=== PATIENT | female | born 1945 | race Caucasian/White ===

== ENCOUNTER 2018-03-01 15:38 | Outpatient (REF) | payer MEDICARE, OTHER, SELFPAY ==
[2018-03-01 22:07] LABS: HCT 39.5 % (36.0-46.0); Mean Corp. HGB Concentration 32.9 g/dL (32.0-36.0); Mean Corpuscular Hemoglobin 30.9 pg (27.0-33.0); Mean Corpuscular Volume 93.8 fL (80-95); Mean Platelet Volume 10.7 fL (8.0-11.0); Platelet Count 266 x1000/uL (130-400); RBC 4.21 m/cumm (4.00-5.20); RBC Distribution Width 12.5 % (11.7-14.6); White Blood Cell Count 5.25 k/cumm (4.4-10.8)
[2018-03-01 22:18] LABS: Anion Gap 6.6 mmol/L (3-11); BUN 14 mg/dL (7-18); CO2 31.4 mmol/L (21.0-32.0); CREATININE 0.54 mg/dL (0.55-1.02); Calcium 8.6 mg/dL (8.5-10.1); Chloride 105 mmol/L (98-107); Glucose 90 mg/dL (70-100); NT-proBNP 102 pg/mL; Potassium 3.9 mmol/L (3.5-5.1); Sodium 143 mmol/L (136-145); TSH 1.19 uIU/mL (0.358-3.74)
== END 2018-03-01 15:58 ==
LOC: NCHCN 15:38
PROVIDERS: PCP Internal Medicine; Visit Provider Registered Nurse
DX: R06.00 Dyspnea, unspecified (principal); E03.9 Hypothyroidism, unspecified
CPT/HCPCS: 80048; 85027; 83880; 84443

== ENCOUNTER 2018-07-06 16:28 | Outpatient (REF) | payer MEDICARE, OTHER, SELFPAY ==
[2018-07-06 21:40] LABS: HCT 38.6 % (36.0-46.0); HGB 12.8 g/dL (12.0-15.5); Mean Corp. HGB Concentration 33.2 g/dL (32.0-36.0); Mean Corpuscular Hemoglobin 31.1 pg (27.0-33.0); Mean Corpuscular Volume 93.7 fL (80-95); Mean Platelet Volume 11.3 fL (8.0-11.0); Platelet Count 242 x1000/uL (130-400); RBC 4.12 m/cumm (4.00-5.20); RBC Distribution Width 12.5 % (11.7-14.6); White Blood Cell Count 6.29 k/cumm (4.4-10.8)
[2018-07-06 21:48] LABS: C-Reactive Protein 0.16 mg/dL (0.0-0.3)
[2018-07-06 23:11] LABS: ESR 12 MM/HR (0-30)
== END 2018-07-06 16:48 ==
LOC: NCHCN 16:28
PROVIDERS: PCP Internal Medicine; Visit Provider Registered Nurse
DX: M79.7 Fibromyalgia (principal); R52 Pain, unspecified
CPT/HCPCS: 85027; 85652; 86140

== ENCOUNTER 2018-08-30 15:08 | Outpatient (REF) | payer MEDICARE, OTHER, SELFPAY ==
[2018-08-30 21:33] LABS: HCT 39.8 % (36.0-46.0); HGB 12.9 g/dL (12.0-15.5); Mean Corp. HGB Concentration 32.4 g/dL (32.0-36.0); Mean Corpuscular Hemoglobin 31.3 pg (27.0-33.0); Mean Corpuscular Volume 96.6 fL (80-95); Mean Platelet Volume 11.1 fL (8.0-11.0); Platelet Count 240 x1000/uL (130-400); RBC 4.12 m/cumm (4.00-5.20); RBC Distribution Width 13.1 % (11.7-14.6); White Blood Cell Count 5.03 k/cumm (4.4-10.8)
[2018-08-30 21:44] LABS: ALT 32 U/L (12-78); AST 20 U/L (15-37); Albumin 3.7 g/dL (3.4-5.0); Alkaline Phosphatase 110 U/L (46-116); Anion Gap 6.3 mmol/L (3-11); BUN 11 mg/dL (7-18); Bilirubin, Total 0.5 mg/dL (0.2-1.0); CO2 30.7 mmol/L (21.0-32.0); CREATININE 0.56 mg/dL (0.55-1.02); Calcium 8.7 mg/dL (8.5-10.1); Chloride 105 mmol/L (98-107); Glucose 91 mg/dL (70-100); Magnesium 2.1 mg/dL (1.8-2.4); Potassium 3.7 mmol/L (3.5-5.1); Sodium 142 mmol/L (136-145); Total Protein 6.5 g/dL (6.4-8.2)
== END 2018-08-30 15:28 ==
LOC: NCHCN 15:08
PROVIDERS: PCP Internal Medicine; Visit Provider Registered Nurse
DX: R07.89 Other chest pain (principal)
CPT/HCPCS: 80053; 85027; 83735

== ENCOUNTER 2019-02-28 10:41 | Outpatient (REF) | payer MEDICARE, OTHER, SELFPAY ==
[2019-02-28 21:33] LABS: TSH 0.51 uIU/mL (0.36-3.74)
== END 2019-02-28 11:01 ==
LOC: NCHCN 10:41
PROVIDERS: PCP Internal Medicine; Visit Provider Registered Nurse
DX: E03.9 Hypothyroidism, unspecified (principal)
CPT/HCPCS: 84443

== ENCOUNTER 2019-10-20 21:55 | Outpatient (REF) | payer MEDICARE, OTHER, SELFPAY ==
[2019-10-20 21:43] LABS: HCT 35.6 % (36.0-46.0); HGB 11.5 g/dL (12.0-15.5); Mean Corp. HGB Concentration 32.3 g/dL (32.0-36.0); Mean Corpuscular Hemoglobin 29.9 pg (27.0-33.0); Mean Corpuscular Volume 92.5 fL (80-95); Platelet Count 291 x1000/uL (130-400); RBC 3.85 m/cumm (4.00-5.20); RBC Distribution Width 12.5 % (11.7-14.6); White Blood Cell Count 5.79 k/cumm (4.4-10.8)
[2019-10-20 22:13] LABS: ALT 20 U/L (14-59); AST 18 U/L (15-37); Albumin 3.6 g/dL (3.4-5.0); Alkaline Phosphatase 109 U/L (46-116); Anion Gap 9.2 mmol/L (3-11); BUN 19 mg/dL (7-18); Bilirubin, Total 0.4 mg/dL (0.2-1.0); CO2 29.8 mmol/L (21.0-32.0); CREATININE 0.81 mg/dL (0.55-1.02); Calcium 8.6 mg/dL (8.5-10.1); Chloride 104 mmol/L (98-107); Glucose 112 mg/dL (74-106); Magnesium 2.1 mg/dL (1.8-2.4); NT-proBNP 182 pg/mL (<300); Potassium 3.6 mmol/L (3.5-5.1); Sodium 143 mmol/L (136-145)
[2019-10-20 22:15] LABS: PROTEIN 18.5 mg/dL
[2019-10-20 22:16] LABS: COMMENT (LAB VIEW ONLY) 219.44 mg/dL; Prot/Crea Ur Ratio 0.08
== END 2019-10-20 22:15 ==
LOC: NCHCN 21:55
PROVIDERS: PCP Internal Medicine; Visit Provider Registered Nurse
DX: R60.0 Localized edema (principal)
CPT/HCPCS: 80053; 85027; 82565; 83735; 83880; 84156

== ENCOUNTER 2019-11-09 19:49 | Outpatient (REF) | payer MEDICARE, OTHER, SELFPAY ==
[2019-11-09 20:00] LABS: HCT 36.7 % (36.0-46.0); MCH 30.2 pg (27.0-33.0); MCHC 32.7 % (32.0-36.0); MCV 92.4 fL (80-95); Platelet Count 275 10^3/uL (130-400); RBC 3.97 10^6/uL (3.93-5.22); RDW 12.4 % (11.7-14.6); RDW-SD 41.6 fL; WBC 6.32 10^3/uL (4.4-10.8)
[2019-11-09 20:23] LABS: Hemoglobin A1C 5.6 % (3.8-5.6)
== END 2019-11-09 20:09 ==
LOC: NCHCN 19:49
PROVIDERS: PCP Internal Medicine; Visit Provider Registered Nurse
DX: D64.9 Anemia, unspecified (principal); R73.9 Hyperglycemia, unspecified
CPT/HCPCS: 85027; 83036

== ENCOUNTER 2020-09-27 16:53 | Outpatient (REF) | payer MEDICARE, OTHER, SELFPAY ==
[2020-09-27 21:02] LABS: Abs Immature Grans 0.02 10^3/uL (0.0-0.06); Absolute Basophil Count 0.08 10^3/uL (0.0-0.2); Absolute Eosinophil Count 0.21 10^3/uL (0.0-0.7); Absolute Lymphocyte Count 1.63 10^3/uL (1.2-3.4); Absolute Monocyte Count 0.59 10^3/uL (0.1-0.8); Absolute Neutrophil Count 3.83 10^3/uL (1.2-6.7); Basophils % 1.3; Eosinophils % 3.3; HGB 12.7 g/dL (11.2-15.7); Immature Grans % 0.3; Lymphocytes % 25.6; MCH 30.8 pg (27.0-33.0); MCHC 32.6 % (32.0-36.0); MCV 94.4 fL (80-95); MPV 11.1 fL (8.0-11.0); Monocytes % 9.3; Neutrophils % 60.2; Nucleated RBC 0 %; Platelet Count 259 10^3/uL (130-400); RBC 4.13 10^6/uL (3.93-5.22); RDW 12.6 % (11.7-14.6); RDW-SD 43.6 fL; WBC 6.36 10^3/uL (4.4-10.8)
[2020-09-27 21:23] LABS: ALT 18 U/L (14-59); AST 16 U/L (15-37); Albumin 3.7 g/dL (3.4-5.0); Alkaline Phosphatase 107 U/L (46-116); Anion Gap 8.7 mmol/L (3-11); BUN 16 mg/dL (7-18); Bilirubin, Total 0.4 mg/dL (0.2-1.0); CO2 30.3 mmol/L (21.0-32.0); CREATININE 0.6 mg/dL (0.55-1.02); Calcium 8.7 mg/dL (8.5-10.1); Calculated LDL 76 mg/dL (<100); Chloride 105 mmol/L (98-107); Cholesterol 155 mg/dL (<200); Glucose 91 mg/dL (74-106); HDL Cholesterol 63 mg/dL (40-60); Sodium 144 mmol/L (136-145); TSH 1.07 uIU/mL (0.36-3.74); Total Protein 6.4 g/dL (6.4-8.2); Triglyceride 81 mg/dL (<150)
[2020-09-27 21:26] LABS: Hemoglobin A1C 5.6 % (<5.7)
== END 2020-09-27 16:54 | disposition home or self-care (01) ==
LOC: NCHCN 16:53
PROVIDERS: PCP Internal Medicine; Visit Provider Registered Nurse
DX: Z00.00 Encounter for general adult medical examination without abnormal findings (principal); E03.9 Hypothyroidism, unspecified; E78.5 Hyperlipidemia, unspecified; M79.10 Myalgia, unspecified site
CPT/HCPCS: 80053; 80061; 83036; 84443; 85025

== ENCOUNTER 2021-01-16 08:45 | Outpatient (REF) | payer MEDICARE, OTHER, SELFPAY ==
[2021-01-18 10:51] LABS: COVID-19 RT-PCR UVMMC Result Negative (Negative)
== END 2021-01-16 08:46 | disposition home or self-care (01) ==
LOC: NCHCN 08:45
PROVIDERS: PCP Internal Medicine; Visit Provider Registered Nurse
DX: Z20.822 Contact with and (suspected) exposure to COVID-19 (principal); R19.7 Diarrhea, unspecified
CPT/HCPCS: U0003; U0005

== ENCOUNTER 2022-10-02 12:58 | Outpatient (REF) | payer MEDICARE, SELFPAY ==
[2022-10-02 16:55] LABS: ESR 8 mm/hr (0-30)
[2022-10-03 20:01] LABS: CRP, High Sensitivity 1.22 mg/L (See Note)
== END 2022-10-02 12:59 | disposition home or self-care (01) ==
LOC: NCHCN 12:58
PROVIDERS: PCP Internal Medicine; Visit Provider Nurse Practitioner Family
DX: M79.605 Pain in left leg (principal); M54.9 Dorsalgia, unspecified; M79.604 Pain in right leg
CPT/HCPCS: 80053; 85652; 86141

== ENCOUNTER 2022-12-15 21:41 | Outpatient (REF) | payer MEDICARE, SELFPAY ==
[2022-12-15 22:14] LABS: Hemoglobin A1C 5.5 % (<5.7)
[2022-12-15 22:21] LABS: ALT 23 U/L (14-59); AST 19 U/L (15-37); Albumin 3.7 g/dL (3.4-5.0); Alkaline Phosphatase 81 U/L (46-116); Anion Gap 5.6 mmol/L (3-11); BUN 14 mg/dL (7-18); Bilirubin, Total 0.5 mg/dL (0.2-1.0); CO2 31.4 mmol/L (21.0-32.0); CREATININE 0.7 mg/dL (0.55-1.02); Calcium 8.9 mg/dL (8.5-10.1); Calculated LDL 54 mg/dL (<100); Chloride 104 mmol/L (98-107); Cholesterol 139 mg/dL (<200); Estimated GFR 89.58 (mL/min/1.73m2); Glucose 98 mg/dL (74-106); HDL Cholesterol 73 mg/dL (40-60); Potassium 3.6 mmol/L (3.5-5.1); Sodium 141 mmol/L (136-145); TSH 0.74 uIU/mL (0.36-3.74); Total Protein 6.3 g/dL (6.4-8.2); Triglyceride 64 mg/dL (<150)
== END 2022-12-15 21:42 | disposition home or self-care (01) ==
LOC: NCHCN 21:41
PROVIDERS: PCP Internal Medicine; Visit Provider Nurse Practitioner Family
DX: E78.5 Hyperlipidemia, unspecified (principal); I10 Essential (primary) hypertension; E03.9 Hypothyroidism, unspecified; R73.09 Other abnormal glucose
CPT/HCPCS: 80053; 80061; 83036; 84443

== ENCOUNTER 2023-12-07 18:47 | Outpatient (REF) | payer MEDICARE, SELFPAY ==
[2023-12-07 21:59] LABS: TSH 1.53 uIU/Ml (0.36-3.74)
== END 2023-12-07 18:48 | disposition home or self-care (01) ==
LOC: NCHCN 18:47
PROVIDERS: PCP Internal Medicine; Visit Provider Nurse Practitioner Family
DX: E03.9 Hypothyroidism, unspecified (principal)
CPT/HCPCS: 84443

== ENCOUNTER 2024-03-14 20:26 | Outpatient (REF) | payer MEDICARE, SELFPAY ==
[2024-03-14 21:44] LABS: Abs Immature Grans 0.01 10^3/uL (0.0-0.06); Absolute Basophil Count 0.06 10^3/uL (0.0-0.2); Absolute Eosinophil Count 0.14 10^3/uL (0.0-0.7); Absolute Monocyte Count 0.59 10^3/uL (0.1-0.8); Absolute Neutrophil Count 4.23 10^3/uL (1.2-6.7); Basophils % 0.9 %; Eosinophils % 2.1 %; HCT 38.5 % (36.0-46.0); HGB 12.6 g/dL (11.2-15.7); Immature Grans % 0.2 %; MCH 30.2 pg (27.0-33.0); MCHC 32.7 % (32.0-36.0); MCV 92 fL (80-95); MPV 10.8 fL (8.0-11.0); Neutrophils % 64.8 %; Platelet Count 283 10^3/uL (130-400); RBC 4.17 10^6/uL (3.93-5.22); RDW 12.9 % (11.7-14.6); RDW-SD 43.7 fL; WBC 6.53 10^3/uL (4.4-10.8)
[2024-03-14 22:06] LABS: ALT 17 U/L (14-59); AST 20 U/L (15-37); Albumin 3.5 g/dL (3.4-5.0); Alkaline Phosphatase 131 U/L (46-116); Anion Gap 7.6 mmol/L (3-11); BUN 23 mg/dL (7-18); Bilirubin, Total 0.56 mg/dL (0.2-1.0); CO2 30.4 mmol/L (21.0-32.0); CREATININE 0.9 mg/dL (0.55-1.02); Calcium 9.2 mg/dL (8.5-10.1); Chloride 107 mmol/L (98-107); Estimated GFR 65.84 (mL/min/1.73m2); Glucose 105 mg/dL (74-106); Potassium 3.7 mmol/L (3.5-5.1); Sodium 145 mmol/L (136-145); Total Protein 6.5 g/dL (6.4-8.2)
[2024-03-14 22:37] LABS: Lipase 18 U/L (<78)
[2024-03-15 09:37] LABS: GGT 16 U/L
== END 2024-03-14 20:27 | disposition home or self-care (01) ==
LOC: NCHCN 20:26
PROVIDERS: PCP Internal Medicine; Visit Provider Nurse Practitioner Family
DX: R10.9 Unspecified abdominal pain (principal); R74.8 Abnormal levels of other serum enzymes
CPT/HCPCS: 80053; 83690; 82977; 85025

== ENCOUNTER 2024-03-18 20:15 | Outpatient (REF) | payer MEDICARE, SELFPAY ==
[2024-03-25 12:46] LABS: Helicobacter pylori Ag, Feces Positive (Negative)
== END 2024-03-18 20:16 | disposition home or self-care (01) ==
LOC: NCHCN 20:15
PROVIDERS: PCP Internal Medicine; Visit Provider Nurse Practitioner Family
DX: R10.9 Unspecified abdominal pain (principal)
CPT/HCPCS: 87338

== ENCOUNTER 2024-04-25 21:31 | Outpatient (REF) | payer MEDICARE, SELFPAY ==
[2024-04-25 22:15] LABS: Vitamin D 25 Total 36.3 ng/mL (30-100)
== END 2024-04-25 21:32 | disposition home or self-care (01) ==
LOC: NCHCN 21:31
PROVIDERS: PCP Internal Medicine; Visit Provider Internal Medicine
DX: M81.0 Age-related osteoporosis without current pathological fracture (principal)
CPT/HCPCS: 82306

== ENCOUNTER 2024-05-09 21:03 | Outpatient (REF) | payer MEDICARE, SELFPAY ==
[2024-05-13 13:48] LABS: Helicobacter pylori Ag, Feces Negative (Negative)
== END 2024-05-09 21:04 | disposition home or self-care (01) ==
LOC: NCHCN 21:03
PROVIDERS: PCP Internal Medicine; Visit Provider Internal Medicine
DX: K29.70 Gastritis, unspecified, without bleeding (principal)
CPT/HCPCS: 87338

== ENCOUNTER 2024-08-08 22:25 | Outpatient (REF) | payer MEDICARE, SELFPAY ==
[2024-08-08 22:40] LABS: Abs Immature Grans 0.02 10^3/uL (0.0-0.06); Absolute Basophil Count 0.06 10^3/uL (0.0-0.2); Absolute Eosinophil Count 0.13 10^3/uL (0.0-0.7); Absolute Lymphocyte Count 1.34 10^3/uL (1.2-3.4); Absolute Monocyte Count 0.44 10^3/uL (0.1-0.8); Absolute Neutrophil Count 4.06 10^3/uL (1.2-6.7); Eosinophils % 2.1 %; HCT 38.9 % (36.0-46.0); Immature Grans % 0.3 %; Lymphocytes % 22.1 %; MCH 31.3 pg (27.0-33.0); MCHC 33.4 % (32.0-36.0); MCV 94 fL (80-95); MPV 10.8 fL (8.0-11.0); Monocytes % 7.3 %; Neutrophils % 67.2 %; Platelet Count 303 10^3/uL (130-400); RBC 4.16 10^6/uL (3.93-5.22); RDW 13.4 % (11.7-14.6); RDW-SD 45.7 fL; WBC 6.05 10^3/uL (4.4-10.8)
[2024-08-08 22:41] LABS: ESR 4 mm/hr (0-30)
[2024-08-08 23:15] LABS: ALT 26 U/L (14-59); AST 21 U/L (15-37); Alkaline Phosphatase 98 U/L (46-116); Anion Gap 5.2 mmol/L (3-11); BUN 15 mg/dL (7-18); Bilirubin, Total 0.7 mg/dL (0.2-1.0); CO2 29.8 mmol/L (21.0-32.0); CREATININE 0.7 mg/dL (0.55-1.02); Calcium 8.7 mg/dL (8.5-10.1); Chloride 107 mmol/L (98-107); Estimated GFR 88.47 (mL/min/1.73m2); Ferritin 30 ng/mL (8-252); Glucose 102 mg/dL (74-106); Magnesium 2.1 mg/dL (1.8-2.4); Potassium 3.8 mmol/L (3.5-5.1); Sodium 142 mmol/L (136-145); TSH 5.73 uIU/mL (0.36-3.74); Total Protein 6.2 g/dL (6.4-8.2)
[2024-08-08 23:17] LABS: C-Reactive Protein < 0.50 mg/dL (<or=0.5)
== END 2024-08-08 22:26 | disposition home or self-care (01) ==
LOC: NCHCN 22:25
PROVIDERS: PCP Internal Medicine; Visit Provider Internal Medicine
DX: R53.83 Other fatigue (principal); G47.9 Sleep disorder, unspecified; M79.606 Pain in leg, unspecified; E03.9 Hypothyroidism, unspecified
CPT/HCPCS: 80053; 85652; 82728; 83735; 84443; 85025; 86140

== ENCOUNTER 2024-09-22 22:03 | Outpatient (REF) | payer MEDICARE, SELFPAY ==
[2024-09-22 22:25] LABS: TSH 3.84 uIU/mL (0.36-3.74)
== END 2024-09-22 22:04 | disposition home or self-care (01) ==
LOC: NCHCN 22:03
PROVIDERS: PCP Internal Medicine; Visit Provider Nurse Practitioner Family
DX: E03.9 Hypothyroidism, unspecified (principal)
CPT/HCPCS: 84443

== ENCOUNTER 2024-11-30 21:09 | Outpatient (REF) | payer MEDICARE, SELFPAY ==
[2024-11-30 21:45] LABS: TSH 3.55 uIU/mL (0.36-3.74)
== END 2024-11-30 21:10 | disposition home or self-care (01) ==
LOC: NCHCN 21:09
PROVIDERS: PCP Internal Medicine; Visit Provider Nurse Practitioner Family
DX: E03.9 Hypothyroidism, unspecified (principal)
CPT/HCPCS: 84443